=== PATIENT | female | born 1960 | race Caucasian/White ===

== ENCOUNTER 2024-02-14 21:15 | Emergency (ER) | payer OTHER, SELFPAY ==
[2024-02-14 21:19] VITALS: BP 130/76
--- NOTE | 2024-02-14 22:13 | ED.GENMED ---
History of Present Illness
General
Chief Complaint: Skin Problem
Source: patient
Exam Limitations: none
Time Seen by Provider: 02/14/24 21:59
Nursing documentation reviewed up to this point in time: agreed with
History of Present Illness
History of Present Illness:
63-year-old female tender swelling to left anterior abdominal wall she thought it was a hernia started after lifting has irritated by seatbelt has redness warmth around the area
Past History
Past History
ED Past Medical History: None
ED Past Surgical History: None
Social History
Tobacco: Non-smoker
Alcohol: None
Drug: None
Personal:
Living: with family
Employment: Employed
Review of Systems
Review of Systems
All Other Systems: Not applicable
Constitutional: Denies fever or fatigue
ABD/GI: Denies abdominal pain, nausea or vomiting
Skin: Reports rash and other (Tenderness)
Phy Exam
Physical Exam
Physical Exam:
Physical Exam
General: no apparent distress, not acutely ill
Neck: No jaw
Heart: s1/s2 regular rate and rhythm, no murmur. equal radial pulses.
Lungs: no acute respiratory distress. clear bilaterally
Abdomen:6 Centimeter area cellulitis around the dime size abscess anterior abdominal wall just lateral to the umbilicus
Neuro: alert and oriented. no focal neurological deficits
Skin: no rash
Psychiatric: well kept. interactive and cooperative
Extremities: no edema.
Course
Orders/Labs/Results
Orders:
Orders
02/14/24 22:57
CeFAZolin 2 GRAM [Ancef] 2 grams in 10 ml IV NOW
HYDROmorphone [Dilaudid] 1 mg IV NOW STA
Ondansetron Injectable [Zofran] 4 mg IV NOW STA
Vital Signs
Initial and Last Documented VS:
Initial Vital Signs
Temp Pulse Resp BP Pulse Ox
98.1 F 94 20 130/76 96
02/14/24 21:19 02/14/24 21:19 02/14/24 21:19 02/14/24 21:19 02/14/24 21:19
Last Documented Vital Signs
Temp Pulse Resp BP Pulse Ox
98.1 F 94 20 130/76 96
02/14/24 21:19 02/14/24 21:19 02/14/24 21:19 02/14/24 21:19 02/14/24 21:19
Procedures
Incision/Drainage/Joint Aspiration
Left Abdomen:
Anethesia: 1% Lidocaine
Preparation: cleaned with Betadine
Type of procedure: drain
Nature of site: abscess
Description of abscess: less than 3cm
How much fluid was obtained?: small amount
Fluid description: purulent
Treatment: left open for drainage
Additional information:
Verbal consent timeout local anesthetic No. 11 blade purulent pus drained antibiotics and analgesics started
MDM/Problems Addressed
Differential Diagnosis Includes:
Cellulitis abscess no clinical signs of hernia
MDM/Problems Addressed:
Cellulitis abscess
*Critical Care Note
Total Time (30-74mins, 75-104mins- exclusive of procedures): Not Applicable
Update Note
Update Note:
Will perform local I&D started on some antibiotics allergies are noted
ED Attending Note
-
Portions of this chart may have been created with voice recognition software.� Occasional wrong word or��sound alike� substitutions may have occurred due to the inherent limitations of voice recognition software.
Discharge Plan
Departure
Patient Disposition: Home (Routine Discharge)
Date of Disposition: 02/14/24
Time of Disposition: 23:13
Patient with high blood pressure during this ER visit?: No
Condition: Good
Discharge Problem:
Cellulitis, Abscess
Instructions: Cellulitis (Skin Infection), Adult (DC), Skin Abscess
Prescriptions:
New
cephalexin 500 mg capsule
500 mg PO Q6H 10 Days Qty: 40 0RF
oxycodone-acetaminophen [Percocet] 5-325 mg tablet
1 tab PO Q6HPRN PRN (Reason: pain) Qty: 10 0RF
No Action
acetaminophen-codeine 1 TABLET tablet
1 tab PO Q4HPRN PRN (Reason: moderate pain)
ascorbic acid (vitamin C) [Vitamin C] 500 MG tablet
1,000 mg PO HS
levothyroxine 150 MCG tablet
150 mcg PO DAILY
zinc 10 MG tablet
1 tab PO HS
polyvinyl alcohol-povidon(PF) [Refresh Classic (PF)] 10 DROPS dropperette
1 drops BOTH EYES DAILYPRN PRN (Reason: eye irritation)
sodium chloride [Saline Nasal] 50 SPRAYS/45 ML aerosol,spray
1 sprays intranasal DAILYPRN PRN (Reason: nasal congestion)
magnesium aspart,citrate,oxide [Triple Magnesium Complex] 400 MG capsule
1 tab PO HS
turmeric 400 MG capsule
1 tab PO HS
sennosides [senna] 1 TABLET tablet
2 tab PO HS 0RF
docusate sodium 100 MG capsule
100 mg PO BID 0RF
linezolid 600 MG tablet
600 mg PO BID Qty: 20 0RF
Referrals:
Kalyn Morgan MD [Family Provider] - Next open appointment
Activity Restrictions/Additional Instructions:
Keep wound covered for the next few days
Antibiotics as prescribed
Return to the ER if increased redness or swelling
Tylenol as needed every 4-6 hours for pain or fever Percocet as needed for more severe pain---
Interventions
Interventions:
*Risk Screen - Suicide Last Done: 02/14/24 21:19
*General Assessment Last Done: 02/14/24 21:19
*Neglect/Abuse Screening Last Done: 02/14/24 21:19
ED- Fall Risk Assessment Last Done: 02/14/24 21:26
*ED COVID-19 Vaccine History Last Done: 02/14/24 21:19
ED-Skin Assessment Last Done: 02/14/24 22:19
Discharge Date and Time
Print Language: [id number]
[2024-02-14 22:19] VITALS: BMI 34.1
[2024-02-14] MEDS: ANCEF 10 IV (23:13)
[2024-02-14] MEDS: ZOFRAN 4 MG IV (23:14)
[2024-02-14] MEDS: DILAUDID 1 MG IV (23:14)
[2024-02-14 23:46] VITALS: BP 120/64
[2024-02-14 23:55] VITALS: BP 120/64
== END 2024-02-14 23:55 | disposition home or self-care (01) ==
LOC: EMR 21:15
PROVIDERS: EMERGENCY PHYSICIAN Emergency Medicine; FAMILY PHYSICIAN Internal Medicine
DX: L02.211 Cutaneous abscess of abdominal wall (principal)
CPT/HCPCS: 99284; 10060; 96374; 96375 ×2

== ENCOUNTER → 2024-02-27 12:21 | Outpatient (REF) | payer OTHER, SELFPAY | LOC: WOUND 12:21 | PROVIDERS: ATTENDING PHYSICIAN Surgery | DX: S31.109A Unspecified open wound of abdominal wall, unspecified quadrant without penetration into peritoneal cavity, initial encounter (principal); L72.3 Sebaceous cyst; E03.9 Hypothyroidism, unspecified; X58.XXXA Exposure to other specified factors, initial encounter | CPT/HCPCS: 99203 ==